=== PATIENT | female | born 1985 | race Hispanic/Latino ===

== ENCOUNTER 2021-06-08 13:39 | Emergency (ER) | payer OTHER ==
[~2021-06-08] VITALS: Ht 165.1 cm; Wt 77.1 kg
[2021-06-08] MEDS ORDERED: BACTRIM DS TAB1 EACH PO (13:57)
[2021-06-08] MEDS ORDERED: CEPHALEXIN500 MG PO (13:57)
[2021-06-08] MEDS ORDERED: IBUPROFEN600 MG PO (13:57)
== END 2021-06-08 16:31 | disposition home or self-care (01) ==
LOC: ER 13:45
DX: L02.31 Cutaneous abscess of buttock (principal)
CPT/HCPCS: 99282